=== PATIENT | male | born 1975 ===

== ENCOUNTER 2019-07-25 16:29 | Emergency (ER) | payer SELFPAY ==
[~2019-07-25] VITALS: Ht 190.5 cm; Wt 86.0 kg
[2019-07-25] MEDS ORDERED: CLON.5 PO (17:17)
[2019-07-25] MEDS ORDERED: PERMETHRIN 1% 60 ML LOTION TP ONE (18:45)
[2019-07-25] MEDS ORDERED: DiphenhydrAMINE HCL 25 MG CAPSULE PO ONE (19:00)
[2019-07-25 19:39] VITALS: BP 129/77
== END 2019-07-25 20:04 | disposition home or self-care (01) ==
LOC: EMS 16:32
DX: B86 Scabies (principal); F17.210 Nicotine dependence, cigarettes, uncomplicated; F32.9 Major depressive disorder, single episode, unspecified; I10 Essential (primary) hypertension; Z59.0 Homelessness
CPT/HCPCS: 99406